=== PATIENT | male | born 1995 ===

== ENCOUNTER 2017-10-10 00:13 | Emergency (ER) | payer BC ==
[2017-10-10 00:49] VITALS: BP 134/63; PULSE 81; RESP 18; TEMP 99.3; O2SAT 98
[2017-10-10] MEDS ORDERED: Sodium Chloride 0.9% 1,000 ML IV STA (01:19)
--- NOTE | 2017-10-10 01:43 | ED PDOC ---
HPI: Headache Time Seen by Provider: 10/10/17 00:42 Chief Complaint (Nursing): Headache Chief Complaint (Provider): Headache History Per: Patient History/Exam Limitations: no limitations Onset/Duration Of Symptoms: Hrs (x12), Gradual Current Symptoms Are (Timing): Better Associated Symptoms: Blurred Vision, Nausea Additional Complaint(s): 21 year old male presents to ED with complaints of gradual onset headache x12 hours and has a past medical history of migraines. Patient states that he had been experiencing a light headache for the last few days, but that 12 hours [facility] he felt lightheaded and disoriented while walking. Notes that he started feeling nauseous and "hot spots" on his posterior head. (-) fever, vomiting, or diarrhea. (+) blurry vision and palpitations. Believes that this headache is different from his previous migraines. Notes that these symptoms were severe x4 hours and have lingered on since then. PCP: in [place] Past Medical History Reviewed: Historical Data, Nursing Documentation, Vital Signs Vital Signs: Last Vital Signs Temp 99.3 F 10/10/17 00:21 Pulse 81 10/10/17 00:21 Resp 18 10/10/17 00:21 BP 134/63 10/10/17 00:21 Pulse Ox 98 10/10/17 00:21 - Medical History PMH: Migraine - Family History Family History: States: Other Other Family History: Patient's aunt had brain aneurysm - Living Arrangements Living Arrangements: With Friends/Others (In college) - Social History Current smoker - smoking cessation education provided: No Ex-Smoker (has not smoked in the last 12 months): No - Allergies Allergies/Adverse Reactions: Allergies Allergy/AdvReac Type Severity Reaction Status Date / Time No Known Allergies Allergy Verified 10/10/17 00:45 Review of Systems ROS Statement: Except As Marked, All Systems Reviewed And Found Negative Constitutional: Negative for: Fever Eyes: Positive for: Vision Change (blurry vision) Cardiovascular: Positive for: Palpitations Gastrointestinal: Positive for: Nausea. Negative for: Vomiting, Diarrhea Neurological: Positive for: Headache Physical Exam - Reviewed Nursing Documentation Reviewed: Yes Vital Signs Reviewed: Yes - Physical Exam Appears: Positive for: Non-toxic, No Acute Distress Head Exam: Positive for: ATRAUMATIC, NORMOCEPHALIC Skin: Positive for: Normal Color, Warm, Dry Eye Exam: Positive for: EOMI, Normal appearance, PERRL Neck: Positive for: Normal, Painless ROM, Supple Cardiovascular/Chest: Positive for: Regular Rate, Rhythm. Negative for: Tachycardia Respiratory: Positive for: Normal Breath Sounds. Negative for: Respiratory Distress Gastrointestinal/Abdominal: Positive for: Normal Exam, Bowel Sounds, Soft Back: Positive for: Normal Inspection Extremity: Positive for: Normal ROM. Negative for: Deformity Neurologic/Psych: Positive for: Alert, Oriented. Negative for: Motor/Sensory Deficits - Laboratory Results Result Diagrams: 10/10/17 02:06 10/10/17 02:06 - ECG O2 Sat by Pulse Oximetry: 98 (RA) Pulse Ox Interpretation: Normal Medical Decision Making Medical Decision Makin Initial impression: headache and neck pain DDx: primary headache or secondary headache Initial plan: * CT HEAD * Labs * NS IV * Reglan 10mg IVP * Re-eval 0212 CT FINDINGS Brain: Unremarkable. Ventricles: Unremarkable. Bones/joints: Unremarkable. No acute fracture. Soft tissues: Unremarkable. Sinuses: Unremarkable as visualized. Mastoid air cells: Unremarkable as visualized. IMPRESSION: No acute intracranial pathology or traumatic injury. Scribe Attestation: Documented by Drea Caldera acting as a scribe for Krystal Sood MD. Scribe Attestation: All medical record entries made by the Scribe were at my direction and personally dictated by me. I have reviewed the chart and agree that the record accurately reflects my personal performance of the history, physical exam, medical decision making, and the department course for this patient. I have also personally directed, reviewed, and agree with the discharge instructions and disposition. Disposition - Clinical Impression Clinical Impression: Headache - Patient ED Disposition Is Patient to be Admitted: No Counseled Patient/Family Regarding: Studies Performed, Diagnosis, Need For Followup - Disposition Referrals: Jose Phillips MD [Staff Provider] - Disposition: Routine/Home Disposition Time: 03:00 Condition: GOOD Additional Instructions: Return for worsenig. Follow up with your PCP IN 2-3 days. Instructions: Acute Headache (ED)
[2017-10-10 02:12] LABS: BASO # 0.1 K/uL (0.0-0.2); BASO % 0.7 % (0.0-2.0); EOS # 0.1 K/uL (0.0-0.7); EOS % 0.9 % (0.0-4.0); HEMATOCRIT 43.1 % (35.0-51.0); LYMPH # 1.4 K/uL (1.0-4.3); LYMPH % 18.2 % (20.0-40.0); MEAN CELL VOLUME 94.6 fl (80.0-94.0); MEAN CORPUSCULAR HEMOGLOBIN 31.3 pg (27.0-31.0); MEAN CORPUSCULAR HGB CONC 33.1 g/dL (33.0-37.0); MEAN PLATELET VOLUME 7.7 fl (7.2-11.7); MONO # 0.5 K/uL (0.0-0.8); MONO % 6.5 % (0.0-10.0); NEUT # 5.9 K/uL (1.8-7.0); NEUT % 73.7 % (50.0-75.0)
[2017-10-10 02:17] LABS: BLOOD UREA NITROGEN 12 mg/dl (9-20); CALCIUM 9.3 mg/dL (8.4-10.2); CARBON DIOXIDE 25 mmol/L (22-30); CHLORIDE 101 mmol/L (98-107); GFR AFRICAN-AMERICAN > 60; GLUCOSE,RANDOM 86 mg/dL (75-110); POTASSIUM 3.8 MMOL/L (3.6-5.0); SODIUM 137 mmol/l (132-148)
--- NOTE | 2017-10-10 08:08 | CT ---
PROCEDURE: CT HEAD WITHOUT CONTRAST. HISTORY: headache COMPARISON: None available. TECHNIQUE: Axial computed tomography images were obtained through the head/brain without intravenous contrast. Radiation dose: Total exam DLP = 862.31 mGy-cm. This CT exam was performed using one or more of the following dose reduction techniques: Automated exposure control, adjustment of the mA and/or kV according to patient size, and/or use of iterative reconstruction technique. FINDINGS: HEMORRHAGE: No intracranial hemorrhage. BRAIN: No mass effect or edema. No atrophy or chronic microvascular ischemic changes. VENTRICLES: Unremarkable. No hydrocephalus. CALVARIUM: Unremarkable. PARANASAL SINUSES: Unremarkable as visualized. No significant inflammatory changes. MASTOID AIR CELLS: Unremarkable as visualized. No inflammatory changes. OTHER FINDINGS: None. IMPRESSION: No acute intracranial abnormalities. No significant findings to account for the clinical presentation. Concordant results (preliminary interpretation) provided by [facility]. Procedure Completed: 02:05 Preliminary ([facility]) Report: Dictated and Authenticated: 02:12 Final Interpretation: 08:07 October 10, 2017.
== END 2017-10-10 03:45 | disposition home or self-care (01) ==
LOC: H.ER 00:13
DX: R51 Headache (principal); Z87.891 Personal history of nicotine dependence
CPT/HCPCS: 70450; 80048; 85025; 96361; 96374; 99282; J2765; J7040